=== PATIENT | male | born 1945 | race Caucasian/White ===

== ENCOUNTER 2019-08-18 09:39 | Emergency (ER) | payer OTHER ==
[~2019-08-18] VITALS: Ht 167.6 cm; Wt 99.8 kg
[2019-08-18] MEDS ORDERED: PRILOSEC OTC20 MG PO (09:49)
[2019-08-18] MEDS ORDERED: TOPROL XL25 MG PO (09:49)
[2019-08-18 10:11] LABS: ABSOLUTE BASOPHILS 0.1 thou/uL (0.0-0.2); ABSOLUTE EOSINOPHILS 0.2 thou/uL (0.0-0.7); ABSOLUTE LYMPHOCYTES 1.5 thou/uL (0.8-5.3); ABSOLUTE MONOCYTES 0.7 thou/uL (0.0-1.2); ABSOLUTE NEUTROPHILS 4.8 thou/uL (1.6-8.1); BASOPHILS 0.9 %; EOSINOPHILS 3.3 %; HEMATOCRIT 41.5 % (42.0-52.0); HEMOGLOBIN 14.1 gm/dL (14.0-18.0); LYMPHOCYTES 20.2 %; MCH 29.9 pg (26.0-34.0); MCV 87.8 fL (80.0-100.0); MONOCYTES 9.3 %; MPV 6.9 fl. (7.2-11.1); NUCLEATED RBCS 0 /100WBC; PLATELET COUNT* 252 thou/uL (150-400); POLYS 66.3 %; RBC 4.73 mil/uL (4.50-6.00); RDW-CV 13.5 % (10.5-14.5); WBC 7.3 thou/uL (4.0-11.0)
[2019-08-18 10:15] LABS: CALCIUM 8.5 mg/dL (8.5-10.1); CREATININE 1.2 mg/dL (0.6-1.3); POTASSIUM 4.1 mmol/L (3.5-5.1)
[2019-08-18 10:21] LABS: APTT 28.4 Seconds (25.0-31.3); PROTIME 10.7 Seconds (9.20-11.50)
[2019-08-18 10:30] LABS: TOTAL BILIRUBIN 1.5 mg/dL (<0.1-1.0); TOTAL PROTEIN 7.4 g/dL (6.4-8.2)
[2019-08-18 10:55] VITALS: BP 121/70
== END 2019-08-18 10:56 | disposition home or self-care (01) ==
LOC: M.ERS 09:39
PROVIDERS: Family Medicine
DX: K64.5 Perianal venous thrombosis (principal); Z90.49 Acquired absence of other specified parts of digestive tract; Z88.0 Allergy status to penicillin